=== PATIENT | male | born 1940 | race Caucasian/White ===

== ENCOUNTER 2017-07-07 08:19 | Day surgery (SDC) | payer OTHER ==
[2017-07-02 08:56] VITALS: BMI 24.3
--- NOTE | 2017-07-05 09:56 | HP ---
DATE OF ADMISSION: 07/07/2017 DATE OF DICTATION: 05/27/2017 REASON FOR ADMISSION: Right inguinal hernia. BRIEF HISTORY: This is a 77-year-old gentleman who presents to the office with complaint of having pain in the right groin region for at least 6 months now. In the early part of November, the patient was taking NSAIDs [id number] to manage his right groin pain. He states he has a lump in the right groin as well. There are times the lump is larger than others. Patient states he has increased discomfort in the right groin with prolonged standing and occasionally walking. He has had no bouts of nausea or vomiting, no change in bowel habits. PAST MEDICAL HISTORY: Significant for peptic ulcer disease. Patient has coronary artery disease status post pacemaker placement. He has hypercholesterolemia and hypothyroidism. PAST SURGICAL HISTORY: Patient has had a defibrillator placed, battery changed in 2016. He had a left inguinal hernia repair in 2003 ( ). He has had surgery on his nose. ALLERGIES: SULFA. MEDICATION: Synthroid 0.175 mg daily, finasteride 0.5 mg daily, tamsulosin 0.4 mg daily, and he takes a multitude of vitamins. SOCIAL HISTORY: Patient is retired. He does not smoke. He drinks socially. PHYSICAL EXAMINATION: Lungs: Clear. Heart: Regular rhythm. Abdomen: Soft. Nontender. Nondistended. He has an obvious moderately large right inguinal hernia which is reducible in the supine position. The right scrotum and testicle is within normal limits. He has a left inguinal hernia and scar. There is no obvious recurrence, some laxity noted. Left scrotum and testicle is within normal limits. IMPRESSION/PLAN: Right inguinal hernia: This is a 77-year-old gentleman with an obvious right inguinal hernia. He has become more symptomatic from the hernia, and at this point I would recommend a repair. We have discussed the pros and cons of a laparoscopic versus open approach, and will plan for laparoscopic right inguinal hernia repair, possible open, and at the time of laparoscopy the left side will be examined, and if a small occult hernia is noted, it will be repaired at the same setting. If no hernia is seen, a piece of mesh will be left in the direct inguinal space for reinforcement. The indications, alternatives, complications of procedure discussed. Questions answered. Will plan to obtain written consent on the day of surgery. Edmar BISHOP [id number] cc: Dr. Johnny Benoit cc: Dr. James Jorge
[~2017-07-07 08:19] MED LIST: ceFAZolin SODIUM 1 GM VIAL IVPB ONE
[2017-07-07] MEDS ORDERED: TAMSULOSIN HCL 0.4 MG CAP.ER.24H (FP) ONE (08:44)
[2017-07-07] MEDS ORDERED: DEXAMETHASONE SOD PHOSPHATE/PF 10 MG/ML SDV ONE (09:21)
[2017-07-07] MEDS ORDERED: MIDAZOLAM HCL 2 MG/2 ML SINGLE DOSE VIAL ONE (09:22)
[2017-07-07] MEDS ORDERED: BUPIVACAINE HCL/PF (5 MG/ML) 30 ML VIAL IJ ONE (09:22)
[2017-07-07] MEDS ORDERED: PROPOFOL 20 ML ONE (09:58)
[2017-07-07] MEDS ORDERED: fentaNYL CITRATE 250 MCG/5 ML VIAL ONE (09:58)
[2017-07-07] MEDS ORDERED: ROCURONIUM BROMIDE 50 MG/5 ML VIAL ONE (09:58)
[2017-07-07] MEDS ORDERED: LIDOCAINE HCL/PF 2% SDV 5ML VIAL ONE (09:59)
[2017-07-07] MEDS ORDERED: ONDANSETRON 4 MG/2 ML VIAL ONE (09:59)
[2017-07-07] MEDS ORDERED: LIDOCAINE HCL 2% JELLY (5 ML/TUBE) ONE (09:59)
[2017-07-07] MEDS ORDERED: KETOROLAC TROMETHAMINE 30 MG/1 ML VIAL ONE (09:59)
[2017-07-07] MEDS ORDERED: ceFAZolin SODIUM 1 GM VIAL ONE (09:59)
[2017-07-07] MEDS ORDERED: DEXAMETHASONE SOD PHOSPHATE 4 MG/1 ML VIAL ONE (09:59)
[2017-07-07] MEDS ORDERED: ceFAZolin SODIUM 1 GM VIAL IVPB ONE (11:13)
[2017-07-07] MEDS ORDERED: NEOSTIGMINE METHYLSULFATE 0.5 MG/ML - 10 ML MDV ONE (11:24)
[2017-07-07] MEDS ORDERED: GLYCOPYRROLATE 0.2 MG/1 ML VIAL ONE ×2 (11:24→11:25)
[2017-07-07] MEDS ORDERED: ONDANSETRON 4 MG/2 ML VIAL IVPUSH PRN (14:49)
[2017-07-07] MEDS ORDERED: oxyCODONE HCL 5 MG TABLET PO PRN (14:49)
[2017-07-07] MEDS ORDERED: LACTATED RINGERS SOLUTION 1,000 ML IV SCH (15:00)
[2017-07-07 15:12] VITALS: PULSE 65
[2017-07-07 18:07] VITALS: BP 131/74; TEMP 98
--- NOTE | 2017-07-08 11:18 | OP ---
DATE OF OPERATION: 07/07/2017 PREOPERATIVE DIAGNOSIS: Right inguinal hernia. POSTOPERATIVE DIAGNOSIS: Right indirect inguinal hernia , marked attenuation in the direct inguinal space, recurrent small left direct inguinal hernia. PROCEDURE: Laparoscopic repair of right inguinal hernia with mesh, laparoscopic repair of recurrent left incarcerated inguinal hernia with mesh. SURGEON: Rickey Barnard MD CHEMICALS DISTILLER: Napoleon Mcgregor DO ANESTHESIA: Nita Acuna MD (general). ESTIMATED BLOOD LOSS: Minimal. SPECIMEN: None. DESCRIPTION OF PROCEDURE: This is a 77-year-old gentleman who presents with having pain and mass in the right groin. On physical examination, he has a right inguinal hernia and fair amount of laxity noted in the left groin and small recurrent hernia cannot be ruled out. Patient was identified and appropriately positioned on the operating room table. After placement of general anesthesia, the abdomen was prepped and draped in the usual sterile fashion with ChloraPrep. An infraumbilical incision was made deep into the subcutaneous tissues. The fascia of the rectus muscle on the right was identified, divided sharply. The muscles split. Under direct vision, the dissector balloon followed by structural balloon were placed. Also under direct vision, a suprapubic 11-mm port placed. The following structures on the right side identified, pubic tubercle, Coopers ligament, inferior epigastric vessels, spermatic cord, and lateral abdominal wall. During this dissection, patient is noted to have marked attenuation of the direct inguinal floor, and a right inguinal hernia indirect. The sac reduced. A 4.5 x 6 piece of Versatex mesh was keyhole placed through the suprapubic port site. The mesh wrapped around the cord structures laterally to reconstruct the internal ring. Laterally, the mesh anchored to the anterior abdominal wall and lateral abdominal wall. Medially, the mesh anchored to the anterior abdominal wall, pubic tubercle, and Coopers ligament. Upon completion of the right side, similar structures on the left side identified. In doing so, the patient was noted to have a plug in the left inguinal floor at the level of the internal ring. There is no indirect recurrence. He had a small direct inguinal hernia containing fat. The fat reduced back in the preperitoneal space. Another piece of Versatex mesh was placed into the preperitoneal space. This size was 4 x 5. This patch was placed in such a way to cover the direct inguinal space and reinforce the indirect inguinal repair. The preperitoneal space subsequently desufflated under direct vision. The operative field examined and noted to be hemostatic. The ports were removed. Port sites hemostatic. The fascia at both port sites were reapproximated with interrupted 0 Vicryl suture. All skin closed with 4-0 subcuticular Biosyn followed by Dermabond. At the conclusion of the case, sponge counts were correct. ATTESTATION: Brief operative note handwritten on the preprinted form. [facility] queried prior to giving any narcotics. Edmar BISHOP [id number] cc: Johnny Benoit MD MTDD
== END 2017-07-07 17:30 | disposition home or self-care (01) ==
LOC: FASU 08:19
PROVIDERS: ATTEND Surgery
PROC: 0YUA4JZ Supplement Bilateral Inguinal Region with Synthetic Substitute, Percutaneous Endoscopic Approach (ICD-10-PCS; principal; 2017-07-07 10:00)
DX: K40.91 Unilateral inguinal hernia, without obstruction or gangrene, recurrent (principal); K40.90 Unilateral inguinal hernia, without obstruction or gangrene, not specified as recurrent
CPT/HCPCS: 94760

== ENCOUNTER 2017-07-08 06:57 | Emergency (ER) | payer OTHER ==
[2017-07-08 07:03] VITALS: BP 185/79; PULSE 85; TEMP 97.8; BMI 28.1
--- NOTE | 2017-07-08 07:35 | PDOC ---
History of Present Illness - General Chief Complaint: Urinary Problem Stated Complaint: URINARY RETENTION Time Seen by Provider: 07/08/17 07:33 - History of Present Illness Initial Comments: 07/08/17 07:45 77yo M hx BPH, HL, ICD, L inguinal hernia repair POD 1 from R inguinal hernia repair (Dr. Rickey Barnard) p/w urinary retention and incontinence. Pt reports he has not had a normal void since before the surgery and when he has incontinence , he does not feel he empty's his bladder enough. Pt reports having a navarro during the surgery. Reports pain at 3/10, has not taken prescribed medications for the surgery. Denies fevers, chills. Reports some post nasal drip. Denies other sxs of CP, SOB, abd pain, N/V/D, weakness, back pain, numbness. Bedside US with 1000cc PVR. Past History - Past Medical History Allergies/Adverse Reactions: Allergies Allergy/AdvReac Type Severity Reaction Status Date / Time Sulfa (Sulfonamide Allergy Severe Verified 07/07/17 08:47 Antibiotics) Home Medications: Ambulatory Orders Finasteride 5 mg PO HS 07/02/17 Levothyroxine [Synthroid -] 150 mcg PO DAILY 07/02/17 Multivitamins [Multivit ([facility] Formulary)] 1 tab PO DAILY 07/02/17 Red Yeast Rice 600 mg PO TID 07/02/17 Tamsulosin HCl [Flomax -] 0.4 mg PO BID 07/02/17 Oxycodone HCl/Acetaminophen [Percocet 5-325 mg Tablet] 1 tab PO Q4H PRN #42 tablet MDD 6 07/07/17 Anemia: No Asthma: No Cancer: No Cardiac Disorders: Yes (MILD CARDIOMYOPATHY,EXERTIONAL V TACH AT END OF STRESS TEST 2007) CVA: No COPD: No CHF: No Dementia: No Diabetes: No GI Disorders: No Disorders: Yes (BPH) HTN: No Hypercholesterolemia: No (ON RED YEAST RICE) Liver Disease: No Seizures: No Thyroid Disease: Yes (HYPOTHYROID) - Surgical History Abdominal Surgery: Yes (LEFT INGUINAL HERNIA WITH MESH 2003) Appendectomy: No Cardiac Surgery: Yes (DEFIB/PACEMAKER IMPLANTED 2007) Cholecystectomy: No Lung Surgery: No Neurologic Surgery: No Orthopedic Surgery: Yes (RIGHT KNEE ARTHROSCOPY 2011) - Suicide/Smoking/Psychosocial Hx Smoking History: Former smoker Have you smoked in the past 12 months: No Number of Cigarettes Smoked Daily: 0 If you are a former smoker, when did you quit?: 1974 Information on smoking cessation initiated: No Hx Alcohol Use: No Drug/Substance Use Hx: No Substance Use Type: Alcohol Hx Substance Use Treatment: No Review of Systems - Review of Systems Comments:: 07/08/17 08:00 GENERAL/CONSTITUTIONAL: No fever or chills. No weakness. HEAD, EYES, EARS, NOSE AND THROAT: No change in vision. No ear pain or discharge. No sore throat.+post-nasal drip GASTROINTESTINAL: No nausea, vomiting, diarrhea or constipation. GENITOURINARY: +urinary retention and incontinence CARDIOVASCULAR: No chest pain or shortness of breath. RESPIRATORY: No cough, wheezing, or hemoptysis. MUSCULOSKELETAL: No joint or muscle swelling or pain. No neck or back pain. SKIN: No rash NEUROLOGIC: No headache, vertigo, loss of consciousness, or change in strength/ sensation. ENDOCRINE: No increased thirst. No abnormal weight change. HEMATOLOGIC/LYMPHATIC: No anemia, easy bleeding, or history of blood clots. ALLERGIC/IMMUNOLOGIC: No hives or skin allergy. *Physical Exam - Vital Signs Last Vital Signs Temp Pulse Resp BP Pulse Ox 97.8 F 85 14 185/79 98 07/08/17 07:00 07/08/17 07:00 07/08/17 07:00 07/08/17 07:00 07/08/17 07:00 - Physical Exam Comments: 07/08/17 07:57 GENERAL: Awake, alert, and fully oriented, in no acute distress HEAD: No signs of trauma EYES: PERRLA, EOMI, sclera anicteric, conjunctiva clear ENT: Auricles normal inspection, hearing grossly normal, nares patent, oropharynx clear without exudates. Moist mucosa NECK: Normal ROM, supple, no lymphadenopathy, JVD, or masses LUNGS: Breath sounds equal, clear to auscultation bilaterally. No wheezes, and no crackles HEART: Regular rate and rhythm, normal S1 and S2, no murmurs, rubs or gallops ABDOMEN: Soft, +distended bladder skilled nursing btwn suprapubic area and umbulicus. EXTREMITIES: Normal range of motion, no edema. No clubbing or cyanosis. No cords, erythema, or tenderness NEUROLOGICAL: Normal speech, cranial nerves intact, negative pronator drift, 5/ 5 strength in all 4 extremities, normal sensation to light touch in all 4 extremities, normal cerebellar exam, normal reflexes and tone, gait deferred. SKIN: Warm, Dry, normal turgor, no rashes or lesions noted. Medical Decision Making - Medical Decision Making 07/08/17 07:57 77-year-old male postop day 1 from a right inguinal hernia repair presents with urinary retention and incontinence. Likely postoperative urinary retention with incontinence due to significant bladder stretch. Navarro is being placed currently , will check urine for UTI. Case discussed with Dr. Mcgregor (Dr. Barnard's partner) , will place navarro and have patient f/u with his urologist Dr. Donn Luong. Call placed to Dr. Luong, awaiting call back. 07/08/17 09:06 Navarro placed with 1L drainage. UA negative for infection. Pain well controlled. Second call placed to Dr. Luong. 07/08/17 09:[address] Luong who would like to see the patient in the office tomorrow. Plan discussed with patient. I discussed the physical exam findings, ancillary test results and final diagnoses with the patient. I answered all of the patient's questions. The patient was satisfied with the care received and felt comfortable with the discharge plan and treatment plan. The patient will call their primary care physician within 24 hours to arrange follow-up and will return to the Emergency Department with any new, persistent or worsening symptoms. *DC/Admit/Observation/Transfer Diagnosis at time of Disposition: Postoperative urinary retention, Urinary complication, postoperative - Discharge Dispostion Disposition: HOME Condition at time of disposition: Good Admit: No - Referrals Referrals: Donn Luong I [Non Staff, Medical] - - Patient Instructions Printed Discharge Instructions: How to Care for Your Navarro Catheter -- Male, DI for Urinary Retention in Men Additional Instructions: Follow up with Dr. Luong tomorrow. Call his office today to make the appointment. Return to the emergency department if you have any new, worsening, and concerning symptoms. - Post Discharge Activity - Attestations Physician Attestion: 07/08/17 09:11 I, Dr. Brad Ames MD, attest that this document has been prepared under my direction and personally reviewed by me in its entirety. I further attest, that it accurately reflects all work, treatment, procedures and medical decision -making performed by me.
[2017-07-08] MEDS ORDERED: LIDOCAINE HCL 2% JELLY 10 ML CARTRIDGE ONE (07:48)
[2017-07-08 08:17] LABS: PH,URINE 5.5 (4.5-8); URINE APPEARANCE Clear; URINE BILIRUBIN Negative (NEGATIVE); URINE GLUCOSE (UA) Trace (NEGATIVE); URINE KETONE Negative (NEGATIVE); URINE LEUK ESTERASE Negative (NEGATIVE); URINE NITRITE Negative (NEGATIVE); URINE PROTEIN Negative (NEGATIVE); URINE UROBILINOGEN 0.2 (0.2-1.0)
[2017-07-08 08:37] LABS: URINE BACTERIA FEW /hpf (NEGATIVE); URINE BLOOD 3+ (NEGATIVE); URINE COLOR YELLOW; URINE RBC 0-3 /hpf (0-3); URINE WBC 0-3 (0-2)
== END 2017-07-08 09:43 | disposition home or self-care (01) ==
LOC: FER 06:57
PROC: 0T9B70Z Drainage of Bladder with Drainage Device, Via Natural or Artificial Opening (ICD-10-PCS; principal; 2017-07-08)
DX: Z98.890 Other specified postprocedural states (principal); Y83.8 Other surgical procedures as the cause of abnormal reaction of the patient, or of later complication, without mention of misadventure at the time of the procedure; N40.0 Benign prostatic hyperplasia without lower urinary tract symptoms; E78.5 Hyperlipidemia, unspecified
CPT/HCPCS: 81003; 81015; 87086; 99283-25

== ENCOUNTER 2020-04-16 15:26 | Emergency (ER) | payer OTHER, MEDICARE ==
--- NOTE | 2020-04-16 15:54 | TELE ---
HPI Do you have fever,cough or shortness of breath?: No - General Reason For Visit: COVID 19 TEST History Source: Patient Exam Limitations: No Limitations - History of Present Illness 04/16/20 15:47 80-year-old male h/o covid positive 09/2019 evaluated via telemedicine. Patient is requesting a COVID test given he was exposed to a known positive COVID person 7 days ago. Patient denies any symptoms such as fever, cough, shortness of breath, chest pain or any other symptom. ROS: as above PE: Speaking full sentences Past History - Medical History Allergies/Adverse Reactions: Allergies Allergy/AdvReac Type Severity Reaction Status Date / Time Sulfa (Sulfonamide Allergy Severe Verified 07/07/17 08:47 Antibiotics) Home Medications: Ambulatory Orders Finasteride 5 mg PO HS 07/02/17 Levothyroxine [Synthroid -] 150 mcg PO DAILY 07/02/17 Multivitamins [Multivit ([facility] Formulary)] 1 tab PO DAILY 07/02/17 Red Yeast Rice 600 mg PO TID 07/02/17 Tamsulosin HCl [Flomax -] 0.4 mg PO BID 07/02/17 Oxycodone HCl/Acetaminophen [Percocet 5-325 mg Tablet] 1 tab PO Q4H PRN #42 tablet MDD 6 07/07/17 Anemia: No Asthma: No Cancer: No Cardiac Disorders: Yes (MILD CARDIOMYOPATHY,EXERTIONAL V TACH AT END OF STRESS TEST 2007) CVA: No COPD: No CHF: No Dementia: No Diabetes: No GI Disorders: No Disorders: Yes (BPH) HTN: No Hypercholesterolemia: No (ON RED YEAST RICE) Liver Disease: No Seizures: No Thyroid Disease: Yes (HYPOTHYROID) - Surgical History Abdominal Surgery: Yes (LEFT INGUINAL HERNIA WITH MESH 2003) Appendectomy: No Cardiac Surgery: Yes (DEFIB/PACEMAKER IMPLANTED 2007) Cholecystectomy: No Lung Surgery: No Neurologic Surgery: No Orthopedic Surgery: Yes (RIGHT KNEE ARTHROSCOPY 2011) - Psycho-Social/Smoking History Smoking History: Former smoker Have you smoked in the past 12 months: No Number of Cigarettes Smoked Daily: 0 If you are a former smoker, when did you quit?: 1975 Discharge Diagnosis at time of Disposition: Suspected COVID-19 virus infection - Referrals Follow-up Referral(s): Andrew Piper MD [Primary Care Provider] - - Patient Instructions Discharge Instructions: [facility]-Coronavirus Instructions - Discharge Disposition: HOME
--- OUTSIDE RECORDS SUMMARY | 2020-04-16 19:48 | XMS ---
:1940 Author Organization [email or web address] Care Team Providers Name Role Phone Rosetosinin, Donn Unavailable Unavailable Rosemarin, Donn Unavailable Unavailable Rosemarin, Donn Unavailable Unavailable Rosemarin, Donn Unavailable Unavailable Rosemarin, Donn Unavailable Unavailable Rosemarin, Donn Unavailable Unavailable Rosemarin, Donn Unavailable Unavailable Rosemarin, Donn Unavailable Unavailable Rosemarin, Donn Unavailable Unavailable Rosemarin, Donn Unavailable Unavailable Rosemarin, Donn Unavailable Unavailable Rosemarin, Donn Unavailable Unavailable Tom Gottlieb MD Unavailable Unavailable Tom Gottlieb MD Unavailable Unavailable Tom Gottlieb MD Unavailable Unavailable Tom Gottlieb MD Unavailable Unavailable Tom Gottlieb MD Unavailable Unavailable Tom Gottlieb MD Unavailable Unavailable Re-disclosure Warning The records that you are about to access may contain information from federally- assisted alcohol or drug abuse programs. If such information is present, then the following federally mandated warning applies: This information has been disclosed to you from records protected by federal confidentiality rules (42 CFR part 2). The federal rules prohibit you from making any further disclosure of this information unless further disclosure is expressly permitted by the written consent of the person to whom it pertains or as otherwise permitted by 42 CFR part 2. A general authorization for the release of medical or other information is NOT sufficient for this purpose. The Federal rules restrict any use of the information to criminally investigate or prosecute any alcohol or drug abuse patient.The records that you are about to access may contain highly sensitive health information, the redisclosure of which is protected by Article 27-F of the [facility] Public Health law. If you continue you may haveaccess to information: Regarding HIV / AIDS; Provided by facilities licensed or operated by the [facility] Office of Mental Health; or Provided by the [facility] Office for People With Developmental Disabilities. If such information is present, then the following [facility] mandated warning applies: This information has been disclosed to you from confidential records which are protected by state law. State law prohibits you from making any further disclosure of this information without the specific written consent of the person to whom it pertains, or as otherwise permitted by law. Any unauthorized further disclosure in violation of state law may result in a fine or assisted sentence or both. A general authorization for the release of medical or other information is NOT sufficient authorization for further disclosure. Allergies and Adverse Reactions Type Description Substance Reaction Status Data Source(s ) Drug allergy Sulfa (Sulfonamide Sulfa (Sulfonamide unknown [facility] Antibiotics) Antibiotics) Hospital Adverse Reaction Adverse Reaction Sulfa Antibiotics [facility] (Digestive Disease & Nutrition [facility] ) Encounters Encounter Providers Location Date Indications Data Source(s ) Outpatient Attender: Tom Digestive 11/30/2019 DYLAN Gottlieb MD Disease & 08:30:00 (Digestive Nutrition [facility] Disease & Nutrition [facility]) Outpatient Attender: Tom Lopez 06/22/2019 DYLAN Gottlieb MD Disease & 07:30:00 (Digestive Nutrition Center [facility] Disease & Nutrition [facility]) Outpatient Attender: Donn 01/26/2019 PERSONAL HX OF [facility] Rosemarin 08:58:00 [facility] AM EDT - POLYPS/DYSPESIA 01/26/2019 09:58:00 AM EDT PERSONAL HX OF COLON POLYPS/DYSPESIA Patient discharged. Medications Medication Brand Start Product Dose Route Administrative Pharmacy [facility] Indications Reaction Description Data Name Date Form Instructions Instructions Source(s) Famotidine Pepcid 11/29/ active MED ENT 20 MG Oral 2019 (Digestiv e Tablet 12:00: Disease & [Pepcid] 00 AM Nutrition EDT [facility]) Diclofenac Voltar 10/20/ active [facility] Sodium 0.01 en 2018 (Digesti ve MG/MG 12:00: Disease & Topical Gel 00 AM Nutriti on [Voltaren] EDT [facility]) Levothyroxi Synthr 10/20/ ORAL active ME DENT ne Sodium oid 2018 (Digestive 0.137 MG 12:00: Disease & Oral Tablet 00 AM Nutriti on [Synthroid] EDT Center [facility]) Super 03/31/ active [facility] Calcium 600 2015 (Digesti ve + D3 12:00: Disease & 00 AM Nutrition EDT Center [facility]) Acetaminoph Acetam 07/05/ TABLET 1 ORAL complet White en/Hydrocod inophe 2012 {[facility] ed Plain s one Bitart n/Hydr 11:46: ule} Hospi connie ocodon 00 AM e EST Bitart Zolpidem Zolpid 07/05/ TABLET 5 mg ORAL complet Wh ite Tartrate em 2012 ed [facility] Tartra 11:46: Hospital te 00 AM EST Cephalexin Cephal 07/05/ CAPSULE 500 ORAL complet White 500 MG Oral exin 2013 mg ed [facility] Capsule Monohy 11:46: Hospital Cephalexin drate 00 AM Monohydrate EST Tamsulosin Tamsul CAPSULE 0.4 ORAL complet W fiona hydrochlori osin mg ed [facility] de 0.4 MG [facility] Oral Capsule [Flomax] Tamsulosin Hcl 7-Keto Dhea active [facility] (Digestive Disease & Nutrition Center [facility]) Flucticason Flucti 50 mg NASAL complet W fiona e casone [facility] Dutasteride Dutast CAPSULE 0.5 ORAL complet White 0.5 MG Oral eride* mg ed [facility] Capsule [facility] [Avodart] Dutasteride * Prasterone Praste CAPSULE 100 ORAL complet W fiona (Dhea) letitia mg ed [facility] (Dhea) [facility] Multivitami active [facility] n Adult (Digestive Disease & Nutrition Center [facility]) Famotidine Pepcid active MEDEN T 20 MG Oral (Digestiv e Tablet Disease & [Pepcid] Nutrition Center [facility]) coenzyme Co ORAL active [facility] Q10 100 MG Q-10 (Digestiv e Oral Disease & Capsule Nutrition [facility]) Simvastatin Simvas TABLET 1 ORAL complet W fiona tatin {[facility] ed [facility] ule} [facility] L-Lysine active [facility] (Digestive Disease & Nutrition Center [facility]) Ubidecareno Ubidec CAPSULE 100 ORAL complet White ne arenon mg ed [facility] e [facility] Tamsulosin Tamsul active MEDEN T hydrochlori osin (Digesti ve de 0.4 MG HCL Disease & Oral Nutrition Capsule [facility]) Finasteride ORAL active [facility] (Digestive Disease & Nutrition Center [facility]) Levocarniti Levoca CAPSULE 250 ORAL complet White ne rnitin mg ed [facility] e Hospital [place]-3/Dha [place]- CAPSULE 1 ORAL complet White /Epa/Fish 3/Dha/ {Each ed [facility] Oil Epa/Fi } Hospital sh Oil Fluticasone Flutic active MEDE NT Propionate asone (Digesti ve Propio Disease & richard Nutrition [facility]) Red Yeast active [facility] Rice (Digestive Disease & Nutrition Center [facility]) Lysine Lysine TABLET 600 ORAL complet White mg ed [facility] red yeast Red CAPSULE 1200 ORAL complet Whit e rice 600 MG Yeast mg ed [facility] Oral [facility] Capsule Red Extrac Yeast Rice t Extract Glucosamine active [facility] Chondroitin (Digesti ve Complex Disease & Nutrition [facility]) Tamsulosin Tamsul SUSTAINE 0.4 ORAL complet White Hcl osin D mg ed [facility] Hcl RELEASE Hospital CAPSULE Levothyroxi Levoth TABLET 175 ORAL complet W fiona ne Sodium yroxin ug ed [facility] e Hospital Sodium Levothyroxi Levoth TABLET 137 ORAL complet W fiona ne Sodium yroxin ug ed [facility] 0.137 MG e Hospital Oral Tablet Sodium [Synthroid] Curcumax active [facility] Pro (Digestive Disease & Nutrition [facility]) Cholecalcif Cholec CAPSULE 1000 ORAL complet White kushal alcife ed [facility] rol Hospital Phytosterol Phytos CAPSULE 1 ORAL complet White /Vit D3/ terol/ {Each ed [facility] Fish Oil Vit } Hospital D3/ Fish Oil Finasteride Finast TABLET 5 mg ORAL complet W fiona 5 MG Oral eride ed [facility] Tablet Hospital Glucosa Ruiz Glucos CAPSULE 1 ORAL complet W fiona 2KCL/Chondr a Ruiz {Each ed [facility] oitin Ruiz 2KCL/C } [facility] hondro itin Ruiz Insurance Providers Payer name Policy type Policy ID Covered Covered green party's Policy P marion / Coverage green party ID relationship to [place] [facility] type [place] AARP MEDICARE [id number] 1 [id number] [place]PP[place] [id number] 1 [id number] PART B [facility] [id number] PT [id number] CARE OPTIONS MEDICARE [id number] PT [id number] Problems, Conditions, and Diagnoses Code Display Name Description Problem Type Effective Dates Data Source(s) [id number] Follow-up Follow-up visit Problem 06/22/2019 [facility] visit 12:00:00 AM EST (Digestiv e (procedure) Disease & Nutrition [facility] ) Note: pt here to follow up with you feel ing well [id number] Follow-up visit Follow-up visit Problem 06/22/2019 MEDE NT (Digestive (procedure) 12:00:00 AM EST Disease & Nutrition [facility] ) [id number] Follow-up visit Follow-up visit Problem 03/08/2018 MEDE NT (Digestive (procedure) 12:00:00 AM EDT Disease & Nutrition [facility] ) [id number] Follow-up visit Follow-up visit Problem 03/31/2016 MEDE NT (Digestive (procedure) 12:00:00 AM EDT Disease & Nutrition [facility] ) Note: 6 month [id number] Cardiomyopathy Cardiomyopathy Problem 10/10/2015 [facility] (disorder) 12:00:00 AM (Digestive EDT Disease & Nutrition [facility]) [id number] Hypothyroidism Hypothyroidism Problem 10/10/2015 [facility] (disorder) 12:00:00 AM (Digestive EDT Disease & Nutrition [facility]) [id number] Hypercholesterolemia Hypercholesterolemia Problem 10/09 [facility] (disorder) 12:00:00 AM (Digestive EDT Disease & Nutrition [facility]) [id number] Acid reflux (finding) Acid reflux Problem 10/10/2015 ME DENT 12:00:00 AM (Digestive EDT Disease & Nutrition [facility]) [id number] Follow-up visit Follow-up visit Problem 10/10/2015 MEDE NT (procedure) 12:00:00 AM (Digestive EDT Disease & Nutrition [facility]) Note: pt following up feeling well. 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/2019 08: 58:00 [facility] (implantable) cardiac AM EDT Hos pital defibrillator I42.9 Cardiomyopathy, I42.9 Diagnosis 01/26/2019 08:58:00 [facility] unspecified AM EDT Hospital E03.9 Hypothyroidism, E03.9 Diagnosis 01/26/2019 08:58:00 [facility] unspecified AM EDT Hospital Z88.2 Allergy status to Z88.2 Diagnosis 01/26/2019 08:58:0 0 [facility] sulfonamides status AM EDT Hospi connie Z79.899 Other senior care Z79.899 Diagnosis 01/26/2019 08:58:00 [facility] (current) drug therapy AM EDT Ho spital K21.0 Gastro-esophageal K21.0 Diagnosis 01/26/2019 08:58:0 0 [facility] reflux disease with AM EDT Hospi connie esophagitis K64.1 Second degree K64.1 Diagnosis 01/26/2019 08:58:00 Wh ite [facility] hemorrhoids AM EDT Hospital 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/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 AM EDT Hospital 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/26/2019 08:58: 00 [facility] ascending colon AM EDT Hospital Z12.11 Encounter for screening Z12.11 Diagnosis 01/26/2019 0 8:58:00 [facility] for malignant neoplasm AM EDT Ho spital of colon Surgeries/Procedures Procedure Description Date Indications Data Source(s) UPPER NDSC BIOPSY 01/26/2019 [facility] (Di gestive SINGLE/MULTIPLE 12:00:00 AM EDT Disease & Nutrition [facility]) COLONOSCOPY W/BIOPSY 01/26/2019 [facility] (Digestive SINGLE/MULTIPLE 12:00:00 AM [facility] Disease & Nutrition [facility]) Results ID Date Data Source [id number] 01/26/2019 02:47:00 PM EDT [facility] (Diges tive Disease & Nutrition [facility]) Name Value Range Interpretation Description Data Sup porting Code Source(s) Document(s ) Laboratory <pending> [facility] test finding (Digestive (navigational Disease & concept) Nutrition [facility]) Procedure Social History Code Duration Value Status Description Data Source(s ) Smoking 11/30/2019 Denies Tobacco completed Denies Tobacco Use ME DENT 12:00:00 AM EDT Use (Digestiv e Disease & Nutrition [facility] ) ETOH Use Denies alcohol completed Denies alcohol use ME DENT use (Digestive Disease & Nutrition [facility] ) Smoking Unknown if ever completed Unknown if ever Whit e [facility] smoked smoked Hospital Vital Signs ID Date Data Source UNK Name Value Range Interpretation Code Description Data Source(s) Body mass 23.3 kg/m2 23.3 kg/m2 [facility] (Digest fermin index (BMI) Disease & [Ratio] Nutrition [facility] ) Body weight 158.00 158.00 [lb_av] [facility] (D igestive [lb_av] Disease & Nutrition [facility] ) Body height 69 [in_i] 69 [in_i] [facility] (Diges tive Disease & Nutrition [facility] ) 5'9" Respiratory rate 13 /min 13 /min [facility] ( Digestive Disease & Nutrition [facility]) Heart rate 72 /min 72 /min [facility] (Digest fermin Disease & Nutrition [facility]) Diastolic blood pressure 82 mm[Hg] 82 mm[Hg] [facility] (Digestive Disease & Nutrition [facility]) Systolic blood pressure 136 mm[Hg] 136 mm[Hg] M EDENT (Digestive Disease & Nutrition [facility]) Diastolic blood pressure 71 mm[Hg] 71 mm[Hg] [facility] Systolic blood pressure 141 mm[Hg] 141 mm[Hg] [facility] Respiratory rate 16 /min 16 /min [facility] Heart rate 60 /min 60 /min [facility] ospital Body temperature 36.53233 Claudia 36.79840 Claudia [facility] Body temperature 97.9 [degF] 97.9 [degF] [facility] Body mass index (BMI) 24.5 kg/m2 24.5 kg/m2 [facility] [Ratio] Body weight 161 [lb_av] 161 [lb_av] [facility] Body mass index (BMI) 24.5 kg/m2 24.5 kg/m2 MED ENT (Digestive Disease [Ratio] & Nutrition [facility]) Body weight 166.00 [lb_av] 166.00 [lb_av] MEDEN T (Digestive Disease & Nutrition [facility]) Body height 69 [in_i] 69 [in_i] [facility] (Diges tive Disease & Nutrition [facility]) 5'9" Respiratory rate 12 /min 12 /min [facility] ( Digestive Disease & Nutrition [facility]) Heart rate 64 /min 64 /min [facility] (Digest fermin Disease & Nutrition [facility]) Diastolic blood pressure 70 mm[Hg] 70 mm[Hg] [facility] (Digestive Disease & Nutrition [facility]) Systolic blood pressure 128 mm[Hg] 128 mm[Hg] ED[facility] (Digestive Disease & Nutrition [facility]) Body mass index (BMI) 24.7 kg/m2 24.7 kg/m2 MED ENT (Digestive Disease [Ratio] & Nutrition [facility]) Body weight 167.00 [lb_av] 167.00 [lb_av] MEDEN T (Digestive Disease & Nutrition [facility]) Body height 69 [in_i] 69 [in_i] [facility] (Diges tive Disease & Nutrition [facility]) 5'9" Respiratory rate 12 /min 12 /min [facility] ( Digestive Disease & Nutrition [facility]) Heart rate 68 /min 68 /min [facility] (Digest fermin Disease & Nutrition [facility]) Diastolic blood pressure 64 mm[Hg] 64 mm[Hg] [facility] (Digestive Disease & Nutrition [facility]) Systolic blood pressure 130 mm[Hg] 130 mm[facility]Hg] [facility])
== END 2020-04-16 15:55 | disposition home or self-care (01) ==
LOC: JVIRT 15:26
DX: Z20.828 Contact with and (suspected) exposure to other viral communicable diseases (principal)
CPT/HCPCS: Q3014-GT; U0003